=== PATIENT | male | born 1950 | race Caucasian/White ===

== ENCOUNTER 2021-06-18 12:55 | Outpatient (REF) | payer MEDICARE, SELFPAY ==
[2021-06-18 13:20] VITALS: BP 153/75; PULSE 57; RESP 16; TEMP 36.6; O2SAT 100
[2021-06-18 13:21] VITALS: BMI 29.0
== END 2021-06-18 12:56 | disposition home or self-care (01) ==
LOC: HO.MS 12:55
PROVIDERS: PCP Internal Medicine; Visit Provider Ophthalmology
PROC: (CPT 66821; principal; 2021-06-18 14:40)
DX: H26.492 Other secondary cataract, left eye (principal); Z96.1 Presence of intraocular lens; I10 Essential (primary) hypertension; E78.00 Pure hypercholesterolemia, unspecified; Z79.899 Other long term (current) drug therapy; Z87.891 Personal history of nicotine dependence
CPT/HCPCS: 66821

== ENCOUNTER 2021-08-27 08:44 | Day surgery (SDC) | payer MEDICARE, SELFPAY ==
[2021-08-21 12:46] VITALS: BMI 29.2
--- NOTE | 2021-08-23 13:50 | P.CONAN_ITS ---
Documented by User: Zuleyka Smyth NP 08/23/21 13:50 HPI - Anesthesia Eval Consult details Narrative: 71yo M for Colonoscopy [facility] Past Medical History Medical History Elevated cholesterol GERD (gastroesophageal reflux disease) Gout HTN (hypertension) On beta jer at home Surgical History Surgical History History of bilateral carpal tunnel release History of esophagogastroduodenoscopy (EGD) Hx of bilateral cataract extraction Hx of colonoscopy Hx of repair of rotator cuff Social History Social History Are you a primary career services director to a significant other at home: No Do you presently have visiting nurse or other home services: No Patient Tobacco Use Status: Former Tobacco user Quit Date: 1999 Tobacco use type: Cigarette Use of substances other than those prescribed or required for medical reasons: No Have you been hit, kicked, punched, or otherwise hurt by someone within the past year? If so, by whom?: No Are you DNR?: No Advance Directives: No (will bring dos) Advance Directives Information Provided: Yes Advance Directives on File: No Meds Allergies Allergy/AdvReac Type Severity Reaction Status Date / Time No Known Allergies Allergy Verified 08/21/21 12:44 [No Known Allergies*] Home Medications Medication Instructions Recorded Confirmed Last Taken Type amlodipine 10 mg tablet 1 tab PO DAILY 08/21/21 08/21/21 08/27/21 06:30 History atorvastatin 40 mg tablet 1 tab PO DAILY 08/21/21 08/21/21 Unknown History bisoprolol fumarate 5 mg tablet 1 tab PO DAILY 08/21/21 08/21/21 08/27/21 06:30 History famotidine 20 mg tablet 1 tab PO DAILY 08/21/21 08/21/21 Unknown History valsartan 160 mg tablet 1 tab PO DAILY 08/21/21 08/21/21 Unknown History Exam Exam Date and Time: August 23, 2021 1350 Height,Weight and Vital Signs: Height 5 ft 10.75 in Weight 94.347 kg Assessment and Plan Assessment Anesthesia Assessment: Chart Reviewed Documented by User: Fannie Jade MD 08/27/21 11:00 PMFSH Active Problems Active Problems: ? Snores. No sleep study Increased BMI Past Medical History Medical History Elevated cholesterol GERD (gastroesophageal reflux disease) Gout HTN (hypertension) On beta jer at home Family History Family history of problems with anesthesia: No Surgical History Surgical History History of bilateral carpal tunnel release History of esophagogastroduodenoscopy (EGD) Hx of bilateral cataract extraction Hx of colonoscopy Hx of repair of rotator cuff History of Problems with Anesthesia: No Social History Social History Are you a primary career services director to a significant other at home: No Do you presently have visiting nurse or other home services: No Patient Tobacco Use Status: Former Tobacco user Quit Date: 1999 Tobacco use type: Cigarette Use of substances other than those prescribed or required for medical reasons: No Have you been hit, kicked, punched, or otherwise hurt by someone within the past year? If so, by whom?: No Are you DNR?: No Advance Directives: No (will bring dos) Advance Directives Information Provided: Yes Advance Directives on File: No Meds Allergies Allergy/AdvReac Type Severity Reaction Status Date / Time No Known Allergies Allergy Verified 08/21/21 12:44 [No Known Allergies*] Home Medications Medication Instructions Recorded Confirmed Last Taken Type amlodipine 10 mg tablet 1 tab PO DAILY 08/21/21 08/21/21 08/27/21 06:30 History atorvastatin 40 mg tablet 1 tab PO DAILY 08/21/21 08/21/21 Unknown History bisoprolol fumarate 5 mg tablet 1 tab PO DAILY 08/21/21 08/21/21 08/27/21 06:30 History famotidine 20 mg tablet 1 tab PO DAILY 08/21/21 08/21/21 Unknown History valsartan 160 mg tablet 1 tab PO DAILY 08/21/21 08/21/21 Unknown History Exam Height,Weight and Vital Signs: Height 5 ft 10.75 in Weight 94.347 kg Vital Signs Temp Pulse Resp BP Pulse Ox 08/27/21 10:18 97.7 F 61 16 171/74 H 99 Airway Mallampati Class: III TM Dist: >3cm Neck ROM: Full Heart: RRR Lungs: CTAB Assessment and Plan Assessment Anesthesia Assessment: Anesthesia Plan Discussed Final Anesthetic Review Family History of Problems with Anesthesia: No History of Problems with Anesthesia: No NPO: Yes ASA Class: III Final Preanesthetic Review: No Changes in Pt Med Stat, Meds/Allgs Chart Reviewed, Consent Obtained/Reviewed and Anes Risks/Benef Reviewed Patient Risk: Intermediate Procedure Risk: Low Assessment/Block/Sedation in SS: Assess/Block/Sedation-SS Anesthetic Plan Anesthetic Plan: MAC: Disposition: Standard PACU
[2021-08-27 10:18] VITALS: BP 171/74; PULSE 61; RESP 16; TEMP 36.5; O2SAT 99; BMI 29.2
[2021-08-27] MEDS: Lactated Ringers 1,000 ML 100 ML IVCONT (10:23)
--- NOTE | 2021-08-27 11:36 | PM.OP ---
Brief Operative Note Date of Service: 08/27/21 Pre-op diagnosis: Screening Post-op diagnosis: other (Colon polyps) Procedure: Colonoscopy to the cecum with cold snare polypectomy x 1 and hot snare polypectomy x 2 of TC polyps, and bx/removal of rectal polyps x 2. Surgeon: Molina Ragland Anesthesia: MAC Was an [employer] used for this Procedure?: No Estimated blood loss (mL): 2.0 Pathology: other (A. Transverse colon polyps B. Rectal polyps) Condition: stable Disposition: PACU
[2021-08-27 11:39] VITALS: BP 110/86; PULSE 61; RESP 18; TEMP 36.6; O2SAT 98
[2021-08-27 11:54] VITALS: BP 144/67; PULSE 56; RESP 18; TEMP 36.6; O2SAT 99
--- NOTE | 2021-08-27 23:42 | OP_ITS ---
SURGEON: Molina Ragland MD INDICATIONS: The patient presents for evaluation of colorectal cancer screening, family history of colon cancer, personal history of tubular adenoma of the colon. Full consent was obtained from him for this, including risks of bleeding and perforation. PREOPERATIVE DIAGNOSIS: POSTOPERATIVE DIAGNOSIS: PROCEDURE PERFORMED: Colonoscopy to the cecum with hot snare polypectomy, cold snare polypectomy, and biopsy removal of polyps. ESTIMATED BLOOD LOSS: COMPLICATIONS: ANESTHESIA: Monitored anesthesia care. ASSISTANTS: SPECIMENS: PREOPERATIVE DIAGNOSES: Colorectal cancer screening, family history of colon cancer, personal history of tubular adenoma of the colon. POSTOPERATIVE DIAGNOSES: Colorectal cancer screening, family history of colon cancer, personal history of tubular adenoma of the colon, colon polyps, diverticulosis and internal hemorrhoids. DESCRIPTION OF PROCEDURE: The patient was placed in the left lateral decubitus position. The digital rectal exam revealed no abnormalities. The [employer] video pediatric colonoscope was entered into the rectum and advanced easily to the cecum. Once in the cecum, I did identify normal-appearing cecal pouch with appendiceal orifice and a normal-appearing ileocecal valve. The entire cecum and ileocecal valve appeared normal. The scope was slowly withdrawn assessing all mucosal surfaces carefully. Preparation was excellent. In the transverse colon was an approximately 6 mm polyp, which was removed by cold snare polypectomy and recovered by suction. The polypectomy site appeared clean, without any sign of residual polyp nor significant bleeding. Also, in the transverse colon were 2 approximately 8-10 mm polyps, which were each snared and removed by hot snare polypectomy and recovered by suction. The polypectomy site appeared clean, without sign of residual polyp nor bleeding. In the rectum were 2 approximately 3 or 4 mm polyps, which were each biopsied and completely removed with cold biopsy forceps. I did not visualize any other polyps, colitis, or angiodysplasia. There was a mild amount of sigmoid diverticulosis. In the rectum, scope was retroflexed visualizing internal hemorrhoids, but no other pathology. The rectal mucosa appeared normal. Scope was straightened and withdrawn from the patient. He tolerated the procedure well and was returned to the recovery area in stable condition. IMPRESSION: 1. Colon polyps. 2. Diverticulosis. 3. Internal hemorrhoids. PLAN: The results of the pathology will be checked. I would recommend a repeat colonoscopy in 5 years for further surveillance. He was advised not to use any aspirin and NSAIDs for 1 week. He will otherwise see me on a p.r.n. basis. MD KIMMIE Hawk/HELLEN / [id number]
== END 2021-08-27 12:29 | disposition home or self-care (01) ==
PROVIDERS: PCP Internal Medicine; Visit Provider Internal Medicine
PROC: 0DJD8ZZ Inspection of Lower Intestinal Tract, Via Natural or Artificial Opening Endoscopic (ICD-10-PCS; CPT 45378; principal; 2021-08-27 10:00)
DX: Z12.11 Encounter for screening for malignant neoplasm of colon (principal); Z80.0 Family history of malignant neoplasm of digestive organs; Z86.010 Personal history of colon polyps; D12.3 Benign neoplasm of transverse colon; D12.8 Benign neoplasm of rectum; K57.30 Diverticulosis of large intestine without perforation or abscess without bleeding; K64.8 Other hemorrhoids; K21.9 Gastro-esophageal reflux disease without esophagitis; I10 Essential (primary) hypertension; E78.5 Hyperlipidemia, unspecified; M10.9 Gout, unspecified; Z79.899 Other long term (current) drug therapy; Z87.891 Personal history of nicotine dependence
CPT/HCPCS: 45385; 45380; 88305